=== PATIENT | female | born 1995 | race Two or more races ===

== ENCOUNTER 2018-05-23 09:16 | Emergency (ER) | payer MEDICAID ==
[~2018-05-23] VITALS: Ht 147.3 cm; Wt 78.0 kg
[2018-05-23 09:21] VITALS: Ht 147.3 cm; Wt 78.0 kg
[2018-05-23 11:25] VITALS: BP 110/64
== END 2018-05-23 11:25 | disposition home or self-care (01) ==
LOC: ED 09:16
DX: R07.89 Other chest pain (principal)
CPT/HCPCS: J1885; Q0092